=== PATIENT | male | born 1995 | race Caucasian/White ===

== ENCOUNTER 2018-04-09 17:17 | Emergency (ER) | payer BC ==
--- NOTE | 2018-04-09 17:41 | EDPHY ---
H & P Smoking Status: Never smoked Time Seen by Provider: 04/09/18 17:31 HPI/ROS: CHIEF COMPLAINT: Depression and suicidal ideation HISTORY OF PRESENT ILLNESS: History depression and anxiety on Adderall and Zoloft, never had a previous psychiatric hospitalization. Presents with several days worsening depression, tearful saying "everyone hates me" and " I can't do anything right" and that I would "be better off ." Patient admits to some suicidal ideation before and wanting to "just end it", will not specify to me if he has a specific plan right now. Denies overdose or self injury or any medical complaints right now. REVIEW OF SYSTEMS: Eye: no change in vision ENT: no sore throat Cardiac: no chest pain or syncope Pulmonary: no cough or SOB Abdomen: no vomiting, diarrhea, abdominal pain Musculoskeletal: no back pain Skin: no rash Neuro: no headache Constitutional: no fever : no urinary symptoms A comprehensive 10 point review of systems is otherwise negative aside from elements mentioned in the history of present illness. PAST MEDICAL HISTORY: As in HPI Social history: Denies alcohol or drugs General Appearance: Alert and conversant, cooperative. Eyes: No scleral icterus. ENT, Mouth: Normal mucous membranes. Respiratory: Normal respiratory effort, breath sounds equal, lungs are clear to auscultation. Cardiovascular: Regular rate and rhythm. Gastrointestinal: Abdomen is soft and non tender. Neurological: Alert, face symmetric, normal motor and sensory in extremities. Skin: No laceration or abrasion. Musculoskeletal: No peripheral edema. Psychiatric: Depressed affect, tearful, see HPI. No hallucinations. Emergency Department course/MDM: Patient placed on a mental health hold by myself for severe depression worsening with suicidal ideation. The patient had a medical screening evaluation performed. There does not appear to be an acute emergent medical or surgical condition which would preclude psychiatric evaluation at this time. Mental health evaluation is requested at 1848. Amphetamine positive consistent with him taking prescribed Adderall. Signed out to Dr. Garber with psychiatric evaluation in progress. (Jonah Prasad) Constitutional: Initial Vital Signs Temperature (C) 37.1 C 04/09/18 17:26 Heart Rate 96 04/09/18 17:26 Respiratory Rate 16 04/09/18 17:26 Blood Pressure 160/101 H 04/09/18 17:26 O2 Sat (%) 96 04/09/18 17:26 O2 Delivery Mode Room Air Allergies/Adverse Reactions: No Known Allergies Allergy (Unverified 04/09/18 17:25) Home Medications: Medication Instructions Recorded Adderall 10 MG (*) 04/09/18 Zoloft 25mg (*) 04/09/18 Medical Decision Making Differential Diagnosis: Differential diagnosis considered for depression including functional and major depression, situational depression, medication side effect, drugs and alcohol abuse. (Jonah Prasad) Other Provider: I assumed care of the patient at 9pm. The patient was evaluated by the psychiatric service. The patient does report that he ran out of his Zoloft 2 days ago secondary to insurance reasons. The on -call psychiatrist Dr. Degroot feels that his symptoms likely are the result of a SSRI withdrawal syndrome. The patient was given his regular dose of Zoloft emergency department and 1 mg of Ativan. The patient has contacted friend who is willing to stay with him this evening. The patient does feel reassured by the diagnosis of SSRI withdrawal syndrome. The patient has a safety plan. Dr. Degroot has recommended vacationing the psychiatric hold. I interviewed the patient personally at 10:00 p.m. and am comfortable with him being discharged with a friend. Patient plans to resume his regular Zoloft tomorrow which is waiting for him at a pharmacy. Patient understands return to the ED immediately for any thoughts of suicide or self-harm. (Dank Garbre) - Data Points Laboratory Results: Laboratory Results 04/09/18 17:45 04/09/18 17:45 04/09/18 04/09/18 04/09/18 17:45 17:45 17:45 WBC 6.18 10^3/uL 10^3/uL (3.80-9.50) RBC 5.44 10^6/uL 10^6/uL (4.40-6.38) Hgb 16.9 g/dL g/dL (13.7-17.5) Hct 48.8 % % (40.0-51.0) MCV 89.7 fL fL (81.5-99.8) MCH 31.1 pg pg (27.9-34.1) MCHC 34.6 g/dL g/dL (32.4-36.7) RDW 12.6 % % (11.5-15.2) Plt Count 214 10^3/uL 10^3/uL (150-400) MPV 9.3 fL fL (8.7-11.7) Neut % (Auto) 58.0 % % (39.3-74.2) Lymph % (Auto) 29.4 % % (15.0-45.0) Anderson % (Auto) 9.1 % % (4.5-13.0) Eos % (Auto) 2.8 % % (0.6-7.6) Baso % (Auto) 0.5 % % (0.3-1.7) Nucleat RBC Rel Count 0.0 % % (0.0-0.2) Absolute Neuts (auto) 3.59 10^3/uL 10^3/uL (1.70-6.50) Absolute Lymphs (auto) 1.82 10^3/uL 10^3/uL (1.00-3.00) Absolute Monos (auto) 0.56 10^3/uL 10^3/uL (0.30-0.80) Absolute Eos (auto) 0.17 10^3/uL 10^3/uL (0.03-0.40) Absolute Basos (auto) 0.03 10^3/uL 10^3/uL (0.02-0.10) Absolute Nucleated RBC 0.00 10^3/uL 10^3/uL (0-0.01) Immature Gran % 0.2 % % (0.0-1.1) Immature Gran # 0.01 10^3/uL 10^3/uL (0.00-0.10) Sodium 140 mEq/L mEq/L (135-145) Potassium 4.1 mEq/L mEq/L (3.5-5.2) Chloride 105 mEq/L mEq/L (97-110) Carbon Dioxide 24 mEq/l mEq/l (22-31) Anion Gap 11 mEq/L mEq/L (6-14) BUN 10 mg/dL mg/dL (7-23) Creatinine 0.9 mg/dL mg/dL (0.7-1.3) Estimated GFR > 60 Glucose 99 mg/dL mg/dL (70-100) Calcium 9.5 mg/dL mg/dL (8.5-10.4) Salicylates < 1.0 mg/dL L mg/dL (2.0-20.0) Urine Opiates Screen NEGATIVE (NEGATIVE) Acetaminophen < 10 mcg/mL L mcg/mL (10-30) Urine Barbiturates NEGATIVE (NEGATIVE) Ur Phencyclidine Scrn NEGATIVE (NEGATIVE) Ur Amphetamine Screen NON-NEGATIVE H (NEGATIVE) U Benzodiazepines Scrn NEGATIVE (NEGATIVE) Urine Cocaine Screen NEGATIVE (NEGATIVE) U Marijuana (THC) Screen NEGATIVE (NEGATIVE) Ethyl Alcohol < 10 mg/dL mg/dL (0-10) Departure - Departure Disposition: Home, Routine, Self-Care Clinical Impression: Severe major depression Condition: Good Instructions: Depression (ED) Additional Instructions: 1. Please follow-up with the mental health resources provided in the ED today. 2. [facility] does operate a 02/10 psychiatric crisis unit located at [facility]. The telephone number for the 24 hour crisis center is [phone]. 3. Please return to the ED if you are feeling suicidal, having thoughts of harming yourself/others or should you feel unsafe or have worsening symptoms. Referrals: [facility],. [Clinic] - As per Instructions
[2018-04-09 17:58] LABS: PLATELET COUNT 214 10^3/uL (150-400)
[2018-04-09] MEDS ORDERED: LORazepam 1 MG TAB PO ONE (21:33)
[2018-04-09] MEDS ORDERED: SERTRALINE HCL 50 MG TAB ONE (21:40)
[2018-04-09] MEDS ORDERED: SERTRALINE HCL 100 MG TAB PO ONE (21:42)
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
[2018-04-09 22:09] VITALS: BP 143/86
--- NOTE | 2018-04-09 22:16 | ASMTTCLDSP ---
TLC Discharge Disposition Disposition: Answers: Discharge If Answers: Yes DISCHARGED: Patient/family given suicide hotline info & [employer] brochure? Disposition Notes: Notes: Pt was discharged to the care of his friends Erasto and Elijah who will be staying with him tonight..Pt stated his prescription for zoloft is ready and he will pick it up tomorrow morning. Pt will follow up with his therapist at [facility] on Sunday. Discharge Concerns/Recommendations: Notes: In consultation with [facility] ED physician, Gaurang Garber MD, and on-call psychiatrist, Eloisa Degroot MD, both concurred that pt does not appear to meet 27-65 criteria requiring psychiatric hospitalization as pt does not appear to be an imminent risk of harm to self/others/gravely disabled due to a mental illness condition. Psychiatrist vacating M1 Eloisa Degroot MD Hold: Date and time M1 hold 04/09/2018 09:30 PM vacated (time format is hh:mm): Date Signed: 04/09/2018 10:15 PM Electronically Signed By:Tete Dyson
== END 2018-04-09 22:10 | disposition home or self-care (01) ==
DX: F32.9 Major depressive disorder, single episode, unspecified (principal); F90.9 Attention-deficit hyperactivity disorder, unspecified type; F41.9 Anxiety disorder, unspecified
CPT/HCPCS: 80305; G0480